=== PATIENT | female | born 1955 | race Caucasian/White ===

== ENCOUNTER → 2018-02-01 | Day surgery (SDC) | payer OTHER ==
[2018-01-31 16:20] VITALS: BMI 31.8
[~2018-02-01] MED LIST: Bupivacaine 0.75% 10 ML AMP ONE; CEFAZOLIN 1 GM VIAL ONE; Cyclopentolate 1% Opth Drop 2 ML BOT ONE; Cyclopentolate 1% Opth Drop 2 ML BOT R EYE SCH; Fentanyl 100 MCG/2 ML VIAL ONE; Fluorouracil 100 MG, Enoxaparin Sodium 25 MG, EPINEPHrine 0.3 MG in Ophthalmic Irrigati... FS SCH; Indocyanine Green 25 MG/10 ML VIAL ONE; Lidocaine 1% PF 5 ML VIAL ONE; Lidocaine 4% PF 5 ML AMP ONE; Maxitrol 0.1% Opth Oint 3.5 GM TUBE ONE; Midazolam HCl 2 mg/2 ml Vial ONE; PROPOFOL 200 MG/20 ML VIAL ONE; Phenylephrine 2.5% Ophth Soln 5 ML BOT ONE; Phenylephrine 2.5% Ophth Soln 5 ML BOT R EYE SCH; Triamcinolone 40 MG/ML VIAL ONE
--- NOTE | 2018-02-01 11:45 | OP ---
DATE OF PROCEDURE: 02/01/2018 PREOPERATIVE DIAGNOSIS: Epiretinal membrane, right eye. POSTOPERATIVE DIAGNOSIS: Epiretinal membrane, right eye. PROCEDURE: Pars plana vitrectomy and membrane peel, right eye. SURGEON: Ulysses Lazcano M.D. ANESTHESIA: Local with monitored anesthesia care. PROCEDURE IN DETAIL: The patient was identified in the preoperative holding area. Appropriate infor med consent for the planned surgical procedure on the right eye had been obtained. The patient was t ransported to the operative suite. Appropriate cardiopulmonary monitoring was established. Local an esthesia obtained using retrobulbar and modified Van Lint lid block using 50/50 mixture of 4% lidocai ne, 0.75% bupivacaine. The patient was prepped and draped in the usual sterile manner for ophthalmic surgery on the right eye. Lid speculum was placed in the right eye. The 25-gauge trocars placed in conjunctiva and sclera supratemporally, inferotemporally, and supranasally. Infusion line was place d inferotemporally. Light pipe and vitreous cutter inserted into the eye. Core vitrectomy was perfo rmed. Posterior hyaloid face was noted to be elevated epiretinal membrane was identified. After inf usion of Indocyanine green dye x1, epiretinal membrane and internal limiting member elevated and peel ed across the macula using end-gripping forceps. Indirect ophthalmoscopy was used to examine the ret yani 360 degrees. No holes, breaks or tears were identified. Prophylactic laser was placed behind th e sclerotomy sites. Trocars were removed. Eye was noted to retain pressure well. Retrobulbar Kenal og and subconjunctival Ancef were placed. Atropine and antibiotic ointment were placed, and the eye was patched and shielded. The patient was taken to the postoperative recovery unit in good condition having suffered no immediate perioperative complications. DISCHARGE INSTRUCTIONS: The patient was instructed to keep patch and shield on, avoid lifting or pepper ding, and follow up in the morning with Dr. Lazcano.
== END ==
LOC: SDC 08:12
PROVIDERS: ATTEND Ophthalmology Retina Specialist
PROC: 08943ZZ Drainage of Right Vitreous, Percutaneous Approach (ICD-10-PCS; principal; 2018-02-01)
DX: H35.371 Puckering of macula, right eye (principal); M06.9 Rheumatoid arthritis, unspecified; I10 Essential (primary) hypertension; Z79.899 Other long term (current) drug therapy
CPT/HCPCS: J0171; J0690; J1650; J2001; J2250; J2704; J3010; J3301; J3490; J9190